=== PATIENT | female | born 1970 | race Caucasian/White ===

== ENCOUNTER 2017-11-07 18:02 | Emergency (ER) | payer BC ==
[2017-11-07 18:09] VITALS: BP 162/92; PULSE 95; O2SAT 100
--- NOTE | 2017-11-07 18:15 | ERPHSYRPT ---
- History of Present Illness Time Seen by Provider: 11/07/17 18:10 Source: patient Exam Limitations: no limitations Patient Subjective Stated Complaint: pt reports falling off of couch while she was hanging curtains landing on left wrist-reports pain increases with movement Triage Nursing Assessment: pt pink warm and [id number] noted to left wrist with radial pulse regular and strong-pt reports full sensation to extremity Physician History: 47-year-old white female arrives with complaint of pain in her left wrist since just prior to arrival patient states she was hanging curtains and fell she has pain in her left wrist. She denies other complaints past medical history includes depression past surgical history is negative. Last menstrual period 2 weeks patient denies chance of Occurred: just prior to arrival Method of Injury: fell Quality: constant, aching Severity of Pain-Max: moderate Severity of Pain-Current: moderate Extremities Pain Location: wrist: left Modifying Factors: Improves With: nothing Associated Symptoms: none Allergies/Adverse Reactions: NKA Allergy (Verified 11/07/17 18:09) Hx Tetanus, Diphtheria Vaccination/Date Given: Yes Hx Influenza Vaccination/Date Given: No Hx Pneumococcal Vaccination/Date Given: No Immunizations Up to Date: Yes - Review of Systems Constitutional: No Fever, No Chills Eyes: No Symptoms Ears, Nose, & Throat: No Symptoms Respiratory: No Cough, No Dyspnea Cardiac: No Chest Pain, No Edema, No Syncope Abdominal/Gastrointestinal: No Abdominal Pain, No Nausea, No Vomiting, No Diarrhea Genitourinary Symptoms: No Dysuria Musculoskeletal: Other (left wrist pain) Skin: No Rash Neurological: No Dizziness, No Focal Weakness, No Sensory Changes Psychological: No Symptoms Endocrine: No Symptoms All Other Systems: Reviewed and Negative - Past Medical History Pertinent Past Medical History: No Neurological History: No Pertinent History Cardiac History: No Pertinent History Respiratory History: No Pertinent History Endocrine Medical History: No Pertinent History Musculoskeletal History: No Pertinent History GI Medical History: No Pertinent History History: No Pertinent History Psycho-Social History: Depression Female Reproductive Disorders: No Pertinent History - Past Surgical History Past Surgical History: No - Social History Smoking Status: Never smoker Exposure to second hand smoke: No Drug Use: none Patient Lives Alone: No - Female History Hx Last Menstrual Period: 2 wks ago Hx Now: No - Nursing Vital Signs Nursing Vital Signs: Initial Vital Signs Temperature 98.5 F 11/07/17 18:05 Pulse Rate 95 H 07/07/18 18:05 Respiratory Rate 18 11/07/17 18:05 Blood Pressure 162/92 11/07/17 18:05 O2 Sat by Pulse Oximetry 100 11/07/17 18:05 Pain Scale Pain Intensity 7 - Physical Exam General Appearance: mild distress Eyes, Ears, Nose, Throat Exam: moist mucous membranes Neck Exam: non-tender, supple Cardiovascular/Respiratory Exam: chest non-tender, normal breath sounds, regular rate/rhythm, no respiratory distress Abdominal Exam: non-tender, No guarding Back Exam: normal inspection, No vertebral tenderness Shoulder Exam: normal inspection, non-tender, no evidence of injury, normal ROM Elbow/Forearm Exam: normal inspection, non-tender, pain, swelling (Mild edema the left distal forearm), No normal ROM (Decreased range of motion left wrist secondary to pain) Wrist Exam: No normal inspection (left wrist decreased range mild edema left distal wrist, radial and ulnar pulses intact 2/4) Hand Exam: normal inspection (full range of motion left fingers, good capillary refill left fingers, sensation intact left fingers) Neuro/Tendon Exam: normal sensation, normal motor functions Mental Status Exam: alert, oriented x 3, cooperative Skin Exam: normal color, warm, dry SpO2 Interpretation: normal (100%) SpO2: 100 Oxygen Delivery: Room Air - Course Nursing assessment & vital signs reviewed: Yes - Radiology Exams Left Wrist X-ray Interpretation: Interpreted by me (impacted comminuted intra-articular fracture left distal radius) Ordered Tests: Active Orders 24 hr Category Date Time Status WRIST (MIN 3 VIEWS) Stat Exams 11/07/17 18:10 Taken - Progress Progress: improved Progress Note: 11/07/17 18:15 47-year-old white female arrives with complaint of pain in her left wrist with palpation and movement mild edema to the left wrist after falling. Patient is offered Toradol she does not want any thing for pain at this time . 11/07/17 18:37 Patient with impacted comminuted intra-articular fracture left distal radius. Patient wants to see orthopedics if possible on Thursday She does not want pain medications at this time. Will plan on placing OCL splint on this patient. Will plan on placing her on [place] for pain. Will discuss case with physician marine engineering consultant for [facility]. 11/07/17 18:[address] Garcia at [facility] orthopedics. I've discussed the case with him in the fact that the patient does not want to present until Thursday. I've discussed the patient's x-ray findings with Dr. Garcia. Will go ahead and place short arm splint on the patient's left forearm. Will write for [place] for pain. Patient is to contact [facility] orthopedics for Dr. Garcia on Thursday and arrange for follow-up on Thursday. - Departure Time of Disposition: 18:44 Departure Disposition: Home Clinical Impression: Fracture of left distal radius Qualifiers: Encounter type: initial encounter Fracture type: closed Fracture morphology: other intra-articular Qualified Code(s): S52.572A - Other intraarticular fracture of lower end of left radius, initial encounter for closed fracture Condition: Fair Critical Care Time: No Referrals: TEJA SHAFFER MD [Primary Care Provider] - Instructions: Wrist Fracture Additional Instructions: Return home. Ice and elevate left wrist 24-48 hours. [place] 5/325 #14 one orally every 4-6 hours as needed for pain.. Contact [facility] orthopedics (for Dr. Garcia) Thursday morning and arrange follow-up for Thursday. Return for acute distress or for severe symptoms. Prescriptions: Hydrocodone/Acetaminophen [[place] 5-325 Tablet] 1 tab PO Q4-6HPRN PRN #14 tablet MDD 6 tablets PRN Reason: Pain
--- NOTE | 2017-11-07 20:37 | XRAY ---
Indication: Pain following fall. Comparison: None 3 views of the left wrist demonstrates minimally displaced non-angulated comminuted distal radial fracture with intra-articular extension and soft tissue swelling. Also minimally nondisplaced ulnar styloid fracture. No other bony, articular, or soft tissue abnormalities.
== END 2017-11-07 18:54 | disposition home or self-care (01) ==
LOC: ED 18:02
PROC: 2W3DX1Z Immobilization of Left Lower Arm using Splint (ICD-10-PCS; principal; 2017-11-07)
DX: S52.572A Other intraarticular fracture of lower end of left radius, initial encounter for closed fracture (principal); W08.XXXA Fall from other furniture, initial encounter; Y93.89 Activity, other specified; Y92.009 Unspecified place in unspecified non-institutional (private) residence as the place of occurrence of the external cause
CPT/HCPCS: 29126; 73110; 99284